=== PATIENT | male | born 1975 | race Two or more races ===

== ENCOUNTER 2022-04-22 19:24 | Emergency (ER) | payer OTHER ==
[~2022-04-22] VITALS: Ht 177.8 cm; Wt 108.9 kg
[2022-04-22] MEDS ORDERED: GLIMEPIRIDE1 MG (20:10)
[2022-04-22] MEDS ORDERED: COZAAR100 MG (20:10)
[2022-04-22] MEDS ORDERED: ATIVAN0.5 M1 (20:11)
== END 2022-04-23 09:09 | disposition home or self-care (01) ==
LOC: ER 19:24
DX: K70.30 Alcoholic cirrhosis of liver without ascites (principal); F10.10 Alcohol abuse, uncomplicated; D64.9 Anemia, unspecified; E11.9 Type 2 diabetes mellitus without complications; Z79.84 Long term (current) use of oral hypoglycemic drugs